=== PATIENT | female | born 1955 | race Asian ===

== ENCOUNTER 2019-04-23 20:04 | Inpatient (IN) | payer BC, MEDICARE, OTHER ==
[~2019-04-23] VITALS: Ht 152.4 cm; Wt 51.7 kg
[2019-04-23] MEDS ORDERED: GABA300C10 PO (20:35)
--- NOTE | 2019-04-23 20:36 | NUR ---
PT PLACED ON HEART MONITOR, BP CUFF, PULSE OX. RA SAT 98% WHILE PT AWAKE THEN DROPS TO 88% WHILE SLEEPING. OXYGEN PLACED AT 2LITERS VIA NC. CALL LIGHT WITHIN REACH, WARM BLANKET PROVIDED.
--- NOTE | 2019-04-23 20:43 | NUR ---
PT TO [facility], REPORT TO BRANDI DE, TRANSFER OF CARE AT THIS TIME.
--- NOTE | 2019-04-23 20:45 | NUR ---
PT IN RAD
[2019-04-23 21:30] LABS: BASOPHILS # (AUTO) 0.01 x10^3/uL (0-0.1); BASOPHILS % (AUTO) 0 % (0-1); EOSINOPHILS # (AUTO) 0.17 x10^3/uL (0-0.4); EOSINOPHILS % (AUTO) 2 % (1-7); LYMPHOCYTES # (AUTO) 1.26 x10^3/uL (1-3.4); LYMPHOCYTES % (AUTO) 17 % (22-44); MD NO; MEAN CORPUSCULAR HEMOGLOBIN 30.3 pg (27.0-34.8); MEAN CORPUSCULAR HGB CONC 33.6 g/dL (32.4-35.8); MEAN CORPUSCULAR VOLUME 90.1 fL (80-100); MEAN PLATELET VOLUME 7.9 fL (7.4-10.4); MONOCYTES # (AUTO) 0.48 x10^3/uL (0.2-0.8); MONOCYTES % (AUTO) 7 % (2-9); NEUTROPHILS # (AUTO) 5.37 x10^3/uL (1.8-6.8); NEUTROPHILS % (AUTO) 74 % (42-75); PLATELET COUNT 249 x10^3/uL (130-400); RED BLOOD COUNT 4.64 x10^6/uL (3.82-5.3); RED CELL DISTRIBUTION WIDTH 13.1 % (9.6-15.2)
[2019-04-23] MEDS ORDERED: KETOROLAC 30 MG/1 ML ONE (21:33)
[2019-04-23 21:36] LABS: ALBUMIN 3.5 g/dL (3.4-5.0); ANION GAP 7 mmol/L (5-15); CALCIUM 8.8 mg/dL (8.5-10.1); CHLORIDE 103 mmol/L (98-107); CREATININE 0.87 mg/dL (0.55-1.02)
--- NOTE | 2019-04-23 21:40 | NUR ---
PT C/O MIDDLE BACK PAIN/SPASMS. ERP AWARE, ORDERS PLACED FOR MEDS. PT MECICATED WITH ORDERED MEDS.
[2019-04-23 21:43] LABS: TROPONIN I 0.212 ng/mL (0.000-0.045)
[2019-04-23] MEDS ORDERED: ASPIRIN 81 MG TABLET CHEW ONE (21:46)
[2019-04-23] MEDS ORDERED: ASPIRIN 81 MG TABLET CHEW PO ONE (22:00)
[2019-04-23] MEDS ORDERED: KETOROLAC 30 MG/1 ML IVPush ONE (22:00)
[2019-04-23] MEDS ORDERED: CHOL-1 PO (22:13)
[2019-04-23] MEDS ORDERED: LIDOCAINE CREAM 4% TD (22:13)
[2019-04-23] MEDS ORDERED: IBUP-1484 PO (22:13)
[2019-04-23] MEDS ORDERED: TYLENOL PM PO (22:13)
--- NOTE | 2019-04-23 22:14 | NUR ---
PT MEDICATED WITH ORDERED ASA. CXR DONE. SECOND IV PLACED. PT ON VITALS AND RETIREMENT ADMINISTRATOR. REPOEAT EKG DONE. WILL CONTINUE TO MONITOR. BILAT BEDRAILS UP. FAMILY AT BEDSIDE. CALL LIGHT WITHIN REACH.
[2019-04-23] MEDS ORDERED: HEPARIN 25,000 UNITS/500ML PMX 500 ML IV PRN (22:30)
[2019-04-23] MEDS ORDERED: HEPARIN 5,000 UNITS/ML, 1ML IV ONE (22:30)
[2019-04-23] MEDS ORDERED: HEPARIN 5,000 UNITS/ML, 1ML IV PRN (22:30)
--- NOTE | 2019-04-23 22:56 | NUR ---
REPORT TO REZA DE FOR ROM [id number]
[2019-04-23] MEDS ORDERED: HEPARIN 5,000 UNITS/ML, 1ML ONE (22:58)
[2019-04-23] MEDS ORDERED: HEPARIN 25,000 UNITS/500ML PMX 500 ML ONE (22:59)
[2019-04-23] MEDS ORDERED: SODIUM CHLORIDE FLUSH 10ML SYR IVF PRN (23:00)
--- NOTE | 2019-04-23 23:14 | NUR ---
ordered heparin gtt started. pt back pain and right arm jose intermittent. pt reporting at this time, pain is gone.
[2019-04-23 23:30] VITALS: BP 175/80
[2019-04-24] MEDS ORDERED: hydrALAzine 20 MG/ML, 1ML IV PRN
[2019-04-24] MEDS ORDERED: ACETAMINOPHEN 325 MG TABLET PO PRN (00:30)
[2019-04-24] MEDS ORDERED: ONDANSETRON 2MG/ML, 2ML IVPush PRN (00:30)
[2019-04-24] MEDS ORDERED: morphine SULFATE 10 MG/ML, 1ML IVPush PRN (00:30)
[2019-04-24] MEDS ORDERED: LORazepam 1MG TABLET PO PRN (00:30)
[2019-04-24] MEDS ORDERED: hydrALAzine 20 MG/ML, 1ML IVPush PRN (00:30)
[2019-04-24] MEDS ORDERED: ENALAPRILAT 1.25 MG/ML, 2ML IVPush PRN (00:30)
[2019-04-24] MEDS ORDERED: GABAPENTIN 300 MG CAPSULE PO PRN (00:30)
[2019-04-24] MEDS ORDERED: POLYETHYLENE GLYCOL 17 GM PACKET PO PRN (00:30)
[2019-04-24] MEDS ORDERED: NITROGLYCERIN 0.4 MG/SPRAY SL PRN (00:30)
[2019-04-24] MEDS ORDERED: NITROGLYCERIN 0.4 MG BOTTLE (25 TABS) SL PRN ×2 (00:30)
[2019-04-24 00:34] VITALS: BP 185/72
[2019-04-24] MEDS ORDERED: HEPARIN 25,000 UNITS/500ML PMX 500 ML IV PRN (01:00)
[2019-04-24] MEDS ORDERED: HEPARIN 5,000 UNITS/ML, 1ML IV PRN (01:00)
[2019-04-24] MEDS: NITROGLYCERIN OINT 2%, 1GM TP SCH ×3 (01:03→13:33)
[2019-04-24 01:12] LABS: THYROID STIMULATING HORMONE 3.33 mIU/L (0.358-3.740)
[2019-04-24 01:25] LABS: HEMOGLOBIN A1C 7.2 % (4.2-6.3)
[2019-04-24 03:07] VITALS: BP 127/65
[2019-04-24 03:37] LABS: CHOLESTEROL, TOTAL 250 mg/dL (140-239); TRIGLYCERIDES 355 mg/dL (50-200); VLDL CHOLESTEROL 71 mg/dL (0-25)
[2019-04-24 03:40] LABS: CHOL/HDL RATIO 5.4; HDL CHOL % 18 % (28-40); HDL CHOLESTEROL (DIRECT) 46 mg/dL (40-60); LDL CHOLESTEROL,CALCULATED 133 mg/dL (54-169); LDL/HDL RATIO 2.9 (0.5-3.0); TROPONIN I 0.188 ng/mL (0.000-0.045)
[2019-04-24] MEDS: KETOROLAC 30 MG/1 ML IV PRN ×2 (05:01→13:33)
[2019-04-24] MEDS ORDERED: ASPIRIN 81 MG TABLET EC PO SCH (06:00)
[2019-04-24 07:00] VITALS: BP 135/72
[2019-04-24] MEDS: INSULIN LISPRO 100 UNITS/ML, PEN SQ-INSULIN SCH ×3 (07:00→16:00)
[2019-04-24] MEDS ORDERED: SENNA/DOCUSATE TABLET PO SCH (09:00)
[2019-04-24 09:29] LABS: TROPONIN I 0.147 ng/mL (0.000-0.045)
[2019-04-24 12:43] VITALS: BP 163/79
[2019-04-24] MEDS ORDERED: METO25TA91 PO (14:44)
[2019-04-24] MEDS ORDERED: LISI5TAB7 PO (14:44)
[2019-04-24] MEDS ORDERED: PANT20TA3 PO (14:44)
[2019-04-24] MEDS ORDERED: TRAM50TA2 PO (17:08)
== END 2019-04-24 17:20 | disposition home or self-care (01) | DRG 282 ==
LOC: ED 21:49 → EDIP 22:32 → 5SO 23:27 → DCLOUNGE 04-24 17:05
PROVIDERS: ADMIT Family Medicine; ATTEND Family Medicine
DX: I21.4 Non-ST elevation (NSTEMI) myocardial infarction (principal); E11.42 Type 2 diabetes mellitus with diabetic polyneuropathy; I10 Essential (primary) hypertension; E78.5 Hyperlipidemia, unspecified; Z82.49 Family history of ischemic heart disease and other diseases of the circulatory system; Z79.899 Other long term (current) drug therapy
CPT/HCPCS: 36415; 71045; 72050; 80048; 80061; 82040; 82962; 83036; 83735; 84100; 84443; 84484; 85025; 85379; 85520; 93005; 96374; 96375; G0378; J1644; J1885; J0360; J1815